=== PATIENT | male | born 1950 | race Caucasian/White ===

== ENCOUNTER 2016-08-03 06:27 | Emergency (ER) | payer OTHER, MEDICARE ==
[~2016-08-03] VITALS: Ht 177.8 cm; Wt 89.4 kg
[~2016-08-03 06:27] MED LIST: LEVO137T2 PO; OMEG10005 PO; SIMV40TA3 PO
[2016-08-03 06:33] VITALS: BP 133/76
--- NOTE | 2016-08-03 06:35 | PHYS DOC ---
Past Medical History Past Medical History: Cancer, High Cholesterol, Hypothyroid Additional Past Medical Histor: colon cancer with surg,chemo & radiation. Past Surgical History: Cancer Surgery, Cholecystectomy, Tonsillectomy Additional Past Surgical Histo: rt knee x 4, acl,lab audra,colon resection, rotator cuff bilat shoulder, Alcohol Use: None Drug Use: None Adult General Chief Complaint Chief Complaint: EYE PROBLEMS HPI HPI Patient is a 66 year old male who presents with bilateral eye pain. He states he woke up this morning and his left eye felt slightly swollen and he felt like something in it. He also states that the light initially bothered his eyes. He denies any extraocular movements that are painful, denies any fevers chills nausea or vomiting, diplopia. He states recently he has had cold-like symptoms. Review of Systems Review of Systems Constitutional: Denies fever or chills [] Eyes: Denies change in visual acuity, redness, positive for bilateral eye is comfort. HENT: Denies nasal congestion or sore throat [] Respiratory: Denies cough or shortness of breath [] Cardiovascular: No additional information not addressed in HPI [] GI: Denies abdominal pain, nausea, vomiting, bloody stools or diarrhea [] : Denies dysuria or hematuria [] Musculoskeletal: Denies back pain or joint pain [] Integument: Denies rash or skin lesions [] Neurologic: Denies headache, focal weakness or sensory changes [] Endocrine: Denies polyuria or polydipsia [] Current Medications Current Medications Current Medications Medications (Trade) Dose Ordered Sig/Kati Start Time Stop Time Status Last Admin Dose Admin Diphtheria/ Tetanus/Acell Pertussis (Boostrix) 0.5 ml ONCE ONCE 08/03/16 08:15 08/03/16 08:16 DC Erythromycin (Romycin) 0.25 inch 1X ONCE 08/03/16 07:45 08/03/16 07:46 DC 08/03/16 07:47 0.25 INCH Fluorescein Sodium (Ful-Chiquis) 2 strip 1X ONCE 08/03/16 06:45 08/03/16 06:46 DC 08/03/16 06:48 2 STRIP Tetracaine HCl (Tetracaine) 1 drop 1X ONCE 08/03/16 06:45 08/03/16 06:46 DC 08/03/16 06:48 1 DROP Allergies Allergies Allergies Coded Allergies Type Severity Reaction Last Updated Verified No Known Drug Allergies 08/15/13 No Physical Exam Physical Exam Constitutional: Well developed, well nourished, no acute distress, non-toxic appearance. [] HENT: Normocephalic, atraumatic, bilateral external ears normal, oropharynx moist, no oral exudates, nose normal. [] Eyes: PERRLA, EOMI, conjunctiva with minimal redness in the lateral conjunctiva , no discharge, split lamp exam did not show any obvious cell or flare, mild discomfort in the left eye, for seeing shows a 1 x 2 mm uptake in the 6 o'clock position near the pupil on the left eye no uptake on the right eye. Ocular pressures on the left 20, 18, 16; on the right 18, 16, 16. Visual acuities on the left 20/70, right 20/40, bilaterally 20/30 Neck: Normal range of motion, no tenderness, supple, no stridor. [] Neurologic: Alert and oriented X 3, normal motor function, normal sensory function, no focal deficits noted. [] Psychologic: Affect normal, judgement normal, mood normal. [] Current Patient Data Vital Signs Vital Signs Date Time Temp Pulse Resp B/P Pulse Ox O2 Delivery O2 Flow Rate FiO2 08/03/16 06:33 98.2 99 20 94 Room Air 98.2 EKG EKG [] Radiology/Procedures Radiology/Procedures [] Impressions: Corneal abrasion Course & Med Decision Making Course & Med Decision Making Pertinent Labs and Imaging studies reviewed. (See chart for details) I spoke with Dr. Garcia with ophthalmic who does not believe this is iritis, he thinks this is probably secondary to his corneal abrasion. He recommends follow- up with Dr. Sanford or himself within 1-2 days. Patient is being discharged with erythromycin ointment and was applied in the ER. I informed the patient to follow-up with Dr. Sanford today. He's use myosin ophthalmology ointment as instructed which is half inch per eye every 6 hours. Return ER for worsening pain, decreased vision, headaches, fevers or other concerns. His tetanus was updated since he is unsure when his last tetanus shot was. Dragon Disclaimer Dragon Disclaimer This electronic medical record was generated, in whole or in part, using a voice recognition dictation system. Departure Departure Impression: Primary Impression: Corneal abrasion Disposition: HOME, SELF-CARE Condition: STABLE Referrals: WILLY DOMINGUEZ Jr, MD (PCP) Patient Instructions: Eye - Corneal Abrasion Additional Instructions: You have an abrasion on the cornea and you need to take urethritis and ointment 1 half-inch every 4-6 hours for the next several days. Please follow-up with Dr. Sanford. Please call his office and schedule appointment for today or tomorrow. Return ER for worsening pain, fevers or other concerns. Scripts Hydrocodone/Apap 5-325 ([place] 5-325 Tablet)1 Each Tablet1-2 Tab PO Q4-6HRS PRN PAIN #20 TAB Prov:IVONNE COSBY MD 08/03/16 IVONNE COSBY MD Aug 03, 2016 06:35
[2016-08-03] MEDS ORDERED: TETRACAINE 0.5% OPHTH SOLUTION 4ML BOTTLE. OU ONE (06:45)
[2016-08-03] MEDS ORDERED: FLUORESCEIN OPHTH TEST STRIP. OU ONE (06:45)
[2016-08-03] MEDS ORDERED: ERYTHROMYCIN 0.5% OPHTH OINTMENT 1GM TUBE. OU ONE (07:45)
[2016-08-03] MEDS ORDERED: HYDR-971 PO (08:02)
[2016-08-03] MEDS ORDERED: DIPHTH,PERTUSS(ACELL),TET TOX 0.5 ML DISP.SYRIN. VAX IM ONE (08:15)
== END 2016-08-03 08:20 | disposition home or self-care (01) ==
LOC: ER 06:27
DX: S05.02XA Injury of conjunctiva and corneal abrasion without foreign body, left eye, initial encounter (principal); S05.01XA Injury of conjunctiva and corneal abrasion without foreign body, right eye, initial encounter; E03.9 Hypothyroidism, unspecified; E78.00 Pure hypercholesterolemia, unspecified; Z85.038 Personal history of other malignant neoplasm of large intestine; Z79.899 Other long term (current) drug therapy; Z90.49 Acquired absence of other specified parts of digestive tract; X58.XXXA Exposure to other specified factors, initial encounter; Y93.89 Activity, other specified; Y92.89 Other specified places as the place of occurrence of the external cause; Y99.8 Other external cause status
CPT/HCPCS: 90471; 90715; 99283-25

== ENCOUNTER 2016-08-06 11:34 | Emergency (ER) | payer OTHER, MEDICARE ==
[~2016-08-06] VITALS: Ht 175.3 cm; Wt 88.5 kg
[~2016-08-06 11:34] MED LIST changes: +HYDR-971 PO
--- NOTE | 2016-08-06 12:30 | PHYS DOC ---
Past Medical History Past Medical History: Cancer, High Cholesterol, Hypothyroid Additional Past Medical Histor: colon cancer with surg,chemo & radiation. Past Surgical History: Cancer Surgery, Cholecystectomy, Tonsillectomy Additional Past Surgical Histo: rt knee x 4, acl,lab audra,colon resection, rotator cuff bilat shoulder, Alcohol Use: None Drug Use: None Adult General Chief Complaint Chief Complaint: LOWER BACK PAIN OR INJURY [facility] HPI This is a 66 yo male presenting with an acute episode of low back pain in the L4 /L5. He states he attempted to stand suddenly from his chair and felt immediate pain in his L4-L5 region with electric-type sensation did radiate somewhat into his buttock. He denies any acute trauma to the area. He states that difficulty ambulating with his pain. 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 Paris wanted him to present to the ER for emergent MRI evaluation. He denies any fever/chills. He denies any significant surgical history. He does have history of colon cancer that required chemotherapy. Review of Systems Review of Systems Constitutional: Denies fever or chills [] Eyes: Denies change in visual acuity, redness, or eye pain [] HENT: Denies nasal congestion or sore throat [] Respiratory: Denies cough or shortness of breath [] Cardiovascular: No additional information not addressed in HPI [] GI: Denies abdominal pain, nausea, vomiting, bloody stools or diarrhea [] : Denies dysuria or hematuria [] Musculoskeletal: Has back pain, denies joint pain [] Integument: Denies rash or skin lesions [] Neurologic: Denies headache, focal weakness or sensory changes [] Endocrine: Denies polyuria or polydipsia [] Current Medications Current Medications Current Medications Medications (Trade) Dose Ordered Sig/Kati Start Time Stop Time Status Last Admin Dose Admin Fentanyl Citrate (Fentanyl 2ml Vial) 50 mcg 1X ONCE 08/06/16 13:00 08/06/16 13:01 DC 08/06/16 12:39 50 MCG Gadobutrol (Gadavist) 9 mmol 1X ONCE 08/06/16 14:15 08/06/16 14:16 DC 08/06/16 13:55 9 MMOL Allergies Allergies Allergies Coded Allergies Type Severity Reaction Last Updated Verified No Known Drug Allergies 08/15/13 No Physical Exam Physical Exam Constitutional: Well developed, well nourished, no acute distress, non-toxic appearance. [] HENT: Normocephalic, atraumatic, bilateral external ears normal, oropharynx moist, no oral exudates, nose normal. [] Eyes: PERRLA, EOMI, conjunctiva normal, no discharge. [] Neck: Normal range of motion, no tenderness, supple, no stridor. [] Cardiovascular:Heart rate regular rhythm, no murmur [] Lungs & Thorax: Bilateral breath sounds clear to auscultation [] Abdomen: Bowel sounds normal, soft, no tenderness, no masses, no pulsatile masses. [] Skin: Warm, dry, no erythema, no rash. [] Back: Significant tenderness to the L4/L5 region with no obvious deformity, swelling, or erythema, no CVA tenderness. [] Extremities: No tenderness, no cyanosis, no clubbing, ROM intact, no edema. [] Neurologic: Alert and oriented X 3, normal motor function, normal sensory function, no focal deficits noted. [] Psychologic: Affect normal, judgement normal, mood normal. [] Current Patient Data Vital Signs Vital Signs Date Time Temp Pulse Resp B/P Pulse Ox O2 Delivery O2 Flow Rate FiO2 08/06/16 12:45 80 114/69 94 Room Air 08/06/16 12:39 16 08/06/16 11:45 98.9 98.9 Lab Values Laboratory Tests Test 08/06/16 12:20 White Blood Count 7.0x10^3/uL (4.0-11.0) Red Blood Count 5.34x10^6/uL (4.30-5.70) Hemoglobin 17.1g/dL (13.0-17.5) Hematocrit 49.4% (39.0-53.0) Mean Corpuscular Volume 93fL (79-100) Mean Corpuscular Hemoglobin 32pg (25-35) Mean Corpuscular Hemoglobin Concent 35g/dL (31-37) Red Cell Distribution Width 13.8% (11.5-14.5) Platelet Count 155x10^3/uL (140-400) Neutrophils (%) (Auto) 69% (31-73) Lymphocytes (%) (Auto) 18% (24-48) L Monocytes (%) (Auto) 10% (0-9) H Eosinophils (%) (Auto) 3% (0-3) Basophils (%) (Auto) 1% (0-3) Neutrophils # (Auto) 4.8x10^3uL (1.8-7.7) Lymphocytes # (Auto) 1.3x10^3/uL (1.0-4.8) Monocytes # (Auto) 0.7x10^3/uL (0.0-1.1) Eosinophils # (Auto) 0.2x10^3/uL (0.0-0.7) Basophils # (Auto) 0.1x10^3/uL (0.0-0.2) Sodium Level 143mmol/L (136-145) Potassium Level 3.8mmol/L (3.5-5.1) Chloride Level 106mmol/L (98-107) Carbon Dioxide Level 26mmol/L (21-32) Anion Gap 11 (6-14) Blood Urea Nitrogen 22mg/dL (8-26) Creatinine 0.9mg/dL (0.7-1.3) Estimated GFR (Cockcroft-Gault) 84.7 Glucose Level 239mg/dL (70-99) H Calcium Level 8.6mg/dL (8.5-10.1) Laboratory Tests 08/06/16 12:20 Laboratory Tests 08/06/16 12:20 EKG EKG [] Radiology/Procedures Radiology/Procedures MRI of the lumbar spine without and with contrast: There is 11 millimeters of anterolisthesis at L4-L5. There is otherwise no malalignment. There is edema in the endplates at L3-L4 and L4-L5, probably sclerosis at L3-L4 as well. There is no worrisome marrow lesion. There is disc desiccation diffusely but greatest at L3-L4 and L4-L5. Narrowing of disc height is greatest at L3-L4. Conus medullaris is normal in signal intensity and in position. There is enhancement involving the nerve roots beginning at the level of L4, without significant peripheral displacement of nerve roots. Nerve roots do appear clumped. 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 Subcutaneous edema is noted. The numbering system assumes 5 lumbar type vertebral bodies. Findings by individual level are as follows: L1-L2: There is a mild disc bulge and left paracentral shallow protrusion. There is slight left lateral recess narrowing. L2-L3: Mild disc bulge and minimal facet hypertrophy are noted without canal or foraminal compromise. L3-L4: There is a disc osteophyte complex. There is facet hypertrophy bilaterally and greater on the left. Midline AP diameter of the thecal sac is narrowed to 11 millimeters. There is lateral recess narrowing, high-grade on the left. There is mild to moderate left and moderate to severe right foraminal narrowing. L4-L5: There is unroofing of the disc in addition to the anterolisthesis. There is marked facet and ligamentum flavum hypertrophy. There is severe canal stenosis. Thecal sac is narrowed to 6 millimeters. There is lateral recess narrowing. There is mild to moderate bilateral foraminal narrowing. L5-S1: There is no canal or foraminal compromise. L5 vertebral body may be partially sacralized on the left. Course & Med Decision Making Course & Med Decision Making Pertinent Labs and Imaging studies reviewed. (See chart for details) This 66 yo male with significant low back pain will have an emergent MRI ordered to rule out any acute cause to his symptoms. Routine laboratory workup will be obtained. He will be given pain control as well. I will touch base with Dr. Paris regarding his findings. His laboratory workup is unremarkable. Arrived his lumbar spine revealed the following findings: There is 11 millimeters of anterolisthesis at L4-L5. There is otherwise no malalignment. There is edema in the endplates at L3-L4 and L4-L5, probably sclerosis at L3-L4 as well. There is no worrisome marrow lesion. There is disc desiccation diffusely but greatest at L3-L4 and L4-L5. Narrowing of disc height is greatest at L3-L4. Conus medullaris is normal in signal intensity and in position. There is enhancement involving the nerve roots beginning at the level of L4, without significant peripheral displacement of nerve roots. Nerve roots do appear clumped. 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 Subcutaneous edema is noted. The numbering system assumes 5 lumbar type vertebral bodies. Findings by individual level are as follows: L1-L2: There is a mild disc bulge and left paracentral shallow protrusion. There is slight left lateral recess narrowing. L2-L3: Mild disc bulge and minimal facet hypertrophy are noted without canal or foraminal compromise. L3-L4: There is a disc osteophyte complex. There is facet hypertrophy bilaterally and greater on the left. Midline AP diameter of the thecal sac is narrowed to 11 millimeters. There is lateral recess narrowing, high-grade on the left. There is mild to moderate left and moderate to severe right foraminal narrowing. L4-L5: There is unroofing of the disc in addition to the anterolisthesis. There is marked facet and ligamentum flavum hypertrophy. There is severe canal stenosis. Thecal sac is narrowed to 6 millimeters. There is lateral recess narrowing. There is mild to moderate bilateral foraminal narrowing. L5-S1: There is no canal or foraminal compromise. L5 vertebral body may be partially sacralized on the left. I discussed these findings with the nurse who works with the neurosurgeon, Dr. Paris, agreed to see the patient in the office tomorrow afternoon. I will be prescribing some Krypton tablets for the patient until that time. He was discharged without incident feeling much improved. Dragon Disclaimer Dragon Disclaimer This electronic medical record was generated, in whole or in part, using a voice recognition dictation system. Departure Departure Impression: Primary Impression: Lumbar strain Additional Impression: Disc degeneration, lumbar Disposition: 01 HOME, SELF-CARE Admitting Physician: Other Condition: STABLE Referrals: WILLY DOMINGUEZ Jr, MD (PCP) Patient Instructions: Degenerative Disk Disease Additional Instructions: Please follow up with Dr. Paris in the afternoon tomorrow. Avoid any strenous activities and take your pain medication as prescribed. Return to the ER if you develop any worsening of your symptoms. Scripts Hydrocodone/Apap 5-325 (K[place] 5-325 Tablet)1 Each Tablet1 Tab PO PRN Q6HRS PRN PAIN #8 TAB Prov:IAN ALLEN DO 08/06/16 Problem Qualifiers IAN ALLEN DO Aug 06, 2016 12:30
[2016-08-06 12:35] LABS: BASO # 0.1 x10^3/uL (0.0-0.2); BASO % 1 % (0-3); EOS % 3 % (0-3); HEMATOCRIT 49.4 % (39.0-53.0); HEMOGLOBIN 17.1 g/dL (13.0-17.5); LYMPH # 1.3 x10^3/uL (1.0-4.8); LYMPH % 18 % (24-48); MEAN CORPUSCULAR HEMOGLOBIN 32 pg (25-35); MEAN CORPUSCULAR HGB CONC 35 g/dL (31-37); MEAN CORPUSCULAR VOLUME 93 fL (79-100); MONO % 10 % (0-9); NEUT % 69 % (31-73); PLATELET COUNT 155 x10^3/uL (140-400); RED BLOOD COUNT 5.34 x10^6/uL (4.30-5.70); RED CELL DISTRIBUTION WIDTH 13.8 % (11.5-14.5)
[2016-08-06 12:45] VITALS: BP 114/69
[2016-08-06 12:48] LABS: CALCIUM 8.6 mg/dL (8.5-10.1); CREATININE 0.9 mg/dL (0.7-1.3); GFR 84.7; POTASSIUM 3.8 mmol/L (3.5-5.1)
[2016-08-06] MEDS ORDERED: FENTANYL PF 100 MCG/2 ML VIAL. IV ONE (13:00)
[2016-08-06] MEDS ORDERED: GADOBUTROL 10 MMOL/10 ML VIAL IV ONE (14:15)
--- NOTE | 2016-08-06 14:21 | RAD ---
PROCEDURE MRI lumbar spine with and without contrast. HISTORY Chronic low back pain and worsening lower extremity radiculopathy bilaterally. No prior surgery. TECHNIQUE Sagittal T1, sagittal T2, sagittal STIR, axial T1, and axial T2 sequences are provided. Patient received 9 milliliters of intravenous Gadavist and post-contrast axial and sagittal imaging was then performed. COMPARISON None. FINDINGS There is 11 millimeters of anterolisthesis at L4-L5. There is otherwise no malalignment. There is edema in the endplates at L3-L4 and L4-L5, probably sclerosis at L3-L4 as well. There is no worrisome marrow lesion. There is disc desiccation diffusely but greatest at L3-L4 and L4-L5. Narrowing of disc height is greatest at L3-L4. Conus medullaris is normal in signal intensity and in position. There is enhancement involving the nerve roots beginning at the level of L4, without significant peripheral displacement of nerve roots. Nerve roots do appear clumped. 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 Subcutaneous edema is noted. The numbering system assumes 5 lumbar type vertebral bodies. Findings by individual level are as follows: L1-L2: There is a mild disc bulge and left paracentral shallow protrusion. There is slight left lateral recess narrowing. L2-L3: Mild disc bulge and minimal facet hypertrophy are noted without canal or foraminal compromise. L3-L4: There is a disc osteophyte complex. There is facet hypertrophy bilaterally and greater on the left. Midline AP diameter of the thecal sac is narrowed to 11 millimeters. There is lateral recess narrowing, high-grade on the left. There is mild to moderate left and moderate to severe right foraminal narrowing. L4-L5: There is unroofing of the disc in addition to the anterolisthesis. There is marked facet and ligamentum flavum hypertrophy. There is severe canal stenosis. Thecal sac is narrowed to 6 millimeters. There is lateral recess narrowing. There is mild to moderate bilateral foraminal narrowing. L5-S1: There is no canal or foraminal compromise. L5 vertebral body may be partially sacralized on the left. IMPRESSION - Degenerative disc disease as well as facet and ligamentum flavum hypertrophy are noted throughout the lumbar spine. Canal stenosis is greatest at L4-L5. Foraminal narrowing is greatest at L3-L4. 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 Electronically signed by: Óscar Callaway MD (Aug 06, 2016 14:20:02)
[2016-08-06] MEDS ORDERED: HYDR-971 PO (15:21)
== END 2016-08-06 16:15 | disposition home or self-care (01) ==
LOC: ER 11:34
DX: S39.012A Strain of muscle, fascia and tendon of lower back, initial encounter (principal); M51.36 Other intervertebral disc degeneration, lumbar region; E78.00 Pure hypercholesterolemia, unspecified; E03.9 Hypothyroidism, unspecified; Z85.038 Personal history of other malignant neoplasm of large intestine; Z90.49 Acquired absence of other specified parts of digestive tract; Z51.11 Encounter for antineoplastic chemotherapy; X58.XXXA Exposure to other specified factors, initial encounter; Y93.89 Activity, other specified; Y92.89 Other specified places as the place of occurrence of the external cause; Y99.8 Other external cause status
CPT/HCPCS: 36415; 72158; 80048; 85027; 96374; 96375; 99285; A9585; J3010

== ENCOUNTER → 2016-08-14 | Outpatient (CLI) | payer MEDICARE, OTHER ==
[2016-08-06 12:45] VITALS: BP 114/69
[~2016-08-14] MED LIST changes: +IOHEXOL 180 MG/ML 10 ML VIAL. ONE; +methylPREDNISolone ACETATE 40 MG/ML VIAL. ONE; +methylPREDNISolone ACETATE 80 MG/ML VIAL. ONE
--- NOTE | 2016-08-15 00:01 | PAIN ---
DATE OF SERVICE: 08/14/2016 INITIAL CONSULTATION CHIEF COMPLAINT: Low back pain. HISTORY OF PRESENT ILLNESS: This is a 66-year-old male who presents with history of pain in the low back for about 2 weeks with some ongoing pain over the years, but nothing significant for the last 2 weeks or so. 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 The patient reports it is a sharp, stabbing, shooting in the low back itself, occasionally in the lower extremities, but mostly in the back itself, occasionally into the bilateral hips and lower extremities and thighs, somewhat worse on the right than the left, but the back is much worse than either. The patient reports he has done some physical therapy as well as exercise over the past 2 weeks, which has not been decreasing the pain significantly. The patient has tried hydrocodone, Valium, morphine and Aleve all which decreased the pain, but only by 20-25% improvement. The patient reports no loss of motor function, but significant pain with walking and standing, better with lying down, but does not awaken him from sleep at night, sometimes affects his bowel and bladder control, but no incontinence. It does not affect his ability to walk, but does affect his ability to walk fairly significantly. He is not using any assistive devices such as canes or walkers to ambulate, however. The patient reports his disability rating from 0-10, 10 being the worst and 3 with family and home responsibilities and occupation and sexual behavior, 6 with recreation, 2 with social activity, 1 with self care and 0 with life support activities. The patient did have MRI scan of the lumbar spine showing degenerative disk disease as well as facet and ligamentum flavum hypertrophy noted throughout the lumbar spine canal stenosis greatest at L4-L5 with foraminal narrowing at L3-L4 enhancement with nerve roots beginning at level L4 as well as disk bulge at L2-L3. The patient's L3-L4 level shows mild to moderate left and moderate to severe right foraminal narrowing. L4-L5 shows unroofing of the disk condition to an anterolisthesis with marked facet ligamentum flavum hypertrophy and severe canal stenosis at this level, thecal sac narrowing to 6 mm with lateral recess narrowing. PAST MEDICAL HISTORY: Significant for arthritis, previous colon cancer 1993, status post radiation and chemotherapy and possibly enlarged prostate. PREVIOUS SURGERY: Include laparoscopic cholecystectomy, colon resection, appendectomy, bilateral rotator cuff repairs, ACL repair of the right knee, three arthroscopies of the right knee as well and previous thyroidectomy. CURRENT MEDICATIONS: Include omega 3 oils, simvastatin, Synthroid, and hydrocodone. ALLERGIES: The patient has no known drug allergies. FAMILY HISTORY: Significant for cardiac disease, blood pressure, type 2 diabetes in both parents who are both . SOCIAL HISTORY: The patient drinks alcohol only very rarely less than twice a year. Does not smoke. 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 REVIEW OF SYSTEMS: The patient's review of systems is positive for those items mentioned in history of present illness. All systems reviewed and otherwise negative. It is complete, full and well documented on the patient's chart. PHYSICAL EXAMINATION: VITAL SIGNS: The patient's blood pressure is 129/90, pulse 98, respirations 16, temperature 98.4 degrees Fahrenheit, height is 5 feet 9 inches, weight is 203 pounds. GENERAL: The patient is awake, alert, oriented, appropriate, very pleasant demeanor. HEENT: Head shows normocephalic, atraumatic. Extraocular movements are intact and symmetrical. Oral cavity shows mucous membranes moist and pink. Dentition is intact. NECK: Shows anterior throat supple without palpable lymphadenopathy noted. Swallow reflex is symmetrical. CHEST: Shows normal on inspection. Breath sounds clear to auscultation bilaterally. HEART: Shows S1 and S2 clear. ABDOMEN: Soft, nontender, nondistended. No palpable organomegaly. No rebound or guarding demonstrated. BACK: Shows spine grossly midline, normal-appearing cervical lordotic curvature, thoracic kyphotic curvature, and lumbar lordotic curvature. No previous bruises, lesions, rashes or scars are noted. Lumbar paraspinous musculature shows symmetrical with inspection with palpation shows some moderate tenderness in the lower and middle distribution of paraspinous muscles bilaterally, but without significant atrophy, hypertrophy, no trigger points, no tenderness over the spinous processes. No tenderness over the sacrum or sacroiliac regions. The patient shows good rotation and motion of the lumbar spine, both laterally as well as extension and flexion without significant pain reported in any of range of motion. LOWER EXTREMITIES: Showed deep tendon reflexes 2+ in the patellar, 1+ tendo calcaneus tendons. Motor exam is strong with 5/5 dorsiflexion, extension, quadriceps and hamstring flexion and equal. Straight leg raise noted to be negative for any reproduction of radicular symptoms bilaterally. Peripheral pulses are 1+ posterior tibial and dorsalis pedis pulses. No peripheral edema is noted. No clubbing, no cyanosis. Lower extremities are warm and dry to touch, equal in color and appearance. The patient is able to stand, stand on his toes without significant difficulty or balance loss, walks with a normal appearing gait for short distance in the office today, is not using any assistive devices to ambulate. IMPRESSION: 1. A 66-year-old male with increased pain in bilateral lower extremities and low back in a radicular fashion for the past 2 weeks or so after an injury at work. 2. MRI scan of lumbar spine as noted. 3. History of colon cancer. 4. Arthritis. PLAN: Options were discussed with the patient including conservative medical management, physical therapy, interventional techniques and would like to pursue interventional techniques. We discussed lumbar epidural steroid injection using description as well as anatomical models to describe the procedure. Risks were then discussed including, but not limited to bleeding, infection, possibility of epidural hematoma, subsequent neurologic compromise, dural punctures, headaches, spinal cord and/or nerve damage, side effects of steroid medication and poor results regarding pain control. The patient understands and wishes to proceed. The patient will return to clinic in approximately 2 weeks for followup, was counseled on return appointment, activity level and side effects to be aware of. DIAGNOSES: Lumbar radiculopathy with lumbar degenerative disk disease and lumbar spinal stenosis. PROCEDURE: Lumbar epidural steroid injection using C-arm fluoroscopic guidance translaminar approach at the L4-L5 level with sterile prep and drape and local anesthesia, medications at this time 20 mg Depo-Medrol plus 10 mL of preservative-free normal saline and 2 mL of Isovue for contrast. Condition at discharge is stable. The patient tolerated procedure well, had no complications. EMILIE SANCHES MD DR: VANNESA/alejandrina JOB#: [id number] / [id number]
== END | disposition home or self-care (01) ==
LOC: PNCL 07:09
PROVIDERS: ATTEND Anesthesiology
DX: M51.16 Intervertebral disc disorders with radiculopathy, lumbar region (principal); M48.06 Spinal stenosis, lumbar region; M19.90 Unspecified osteoarthritis, unspecified site; Z85.038 Personal history of other malignant neoplasm of large intestine; Z72.89 Other problems related to lifestyle; Z83.3 Family history of diabetes mellitus
CPT/HCPCS: 62323; J1030; J1040

== ENCOUNTER → 2016-09-01 | Outpatient (CLI) | payer OTHER, MEDICARE ==
[2016-08-06 12:45] VITALS: BP 114/69
--- NOTE | 2016-09-01 10:28 | PAIN ---
DATE OF SERVICE: 09/01/2016 PROGRESS NOTE FOR PAIN CLINIC DIAGNOSES: Lumbar radiculopathy with lumbar degenerative disk disease and lumbar spinal stenosis. HISTORY OF PRESENT ILLNESS: The patient is a 66-year-old male who returns for followup status post lumbar epidural steroid injection x 1. The patient reports approximately 75% improvement in the low back and bilateral lower extremity pain still worse on the right than the left, but significantly improved with almost no pain in the back now. The patient reports he has been increasing his activity, but being careful with what he does. He has been working and he is on his feet most of the time without significant difficulty or pain reported. The patient reports the pain as 0 on a scale of 10 currently, but is only ____ 3 on a scale of 10 at other times with activity. The patient reports no new motor or sensory deficits, no new bowel or bladder incontinence or other complaints, very pleased with his progress thus far. PHYSICAL EXAMINATION: VITAL SIGNS: Today, the patient's blood pressure 115/75, pulse is 70, respirations 18, temperature is 98.0 degrees Fahrenheit, height is 5 feet 9 inches, weight is 202 pounds. GENERAL: The patient is awake, alert, oriented, appropriate, very pleasant demeanor. HEENT: Head shows normocephalic, atraumatic. Extraocular movements are intact and symmetrical. Oral cavity shows mucous membranes moist and pink. Dentition is intact. NECK: Shows anterior throat supple without palpable lymphadenopathy noted. Swallow reflex is symmetrical. CHEST: Shows normal on inspection. Breath sounds are clear to auscultation bilaterally. HEART: Shows S1 and S2 clear. ABDOMEN: Soft, nontender, nondistended. BACK: Shows spine grossly midline. Lumbar paraspinous muscle shows some moderate tenderness with palpation, but is symmetrical in appearance, only diffusely tender in the lower lumbar distribution bilaterally, but without radiation. The patient shows good rotational motion of the lumbar spine, both laterally as well as extension and flexion without difficulty. EXTREMITIES: Lower extremities show deep tendon reflexes at 2+ in the patellar, 1+ tendo-calcaneus tendons are equal. Motor exam is strong with 5/5 dorsiflexion, extension, quadriceps and hamstring flexion and symmetrical. Options were discussed with the patient. The patient's old chart was reviewed and his current medication regimen updated. Current review of systems is updated today as well. We will proceed with a second lumbar epidural steroid injection today with fluoroscopic guidance. Risks were again discussed including, but not limited to bleeding, infection, possibility of epidural hematoma, subsequent neurologic compromise, dural puncture, headaches, spinal cord and/or nerve damage, side effects of steroid medication and poor results regarding pain control. The patient understands and wishes to proceed. The patient will return to clinic in approximately 2 weeks for followup. He was counseled on return appointment, activity level and side effects to be aware of. DIAGNOSES: Lumbar radiculopathy with lumbar degenerative disk disease, lumbar spinal stenosis. PROCEDURE: Lumbar epidural steroid injection in translaminar approach at L4-L5 level using C-arm fluoroscopic guidance under sterile prep and drape using local anesthetic. MEDICATIONS INJECTED: 120 mg Depo-Medrol plus 10 mL of preservative-free normal saline, 2 mL of Isovue for contrast. CONDITION AT DISCHARGE: Stable. The patient tolerated the procedure well, had no complications. EMILIE SANCHES MD DR: VANNESA/alejandrina JOB#: [id number] / [id number]
== END | disposition home or self-care (01) ==
LOC: PNCL 07:22
PROVIDERS: ATTEND Anesthesiology
DX: M51.16 Intervertebral disc disorders with radiculopathy, lumbar region (principal); M48.06 Spinal stenosis, lumbar region
CPT/HCPCS: 62323; J1030; J1040

== ENCOUNTER 2016-09-14 06:29 | Day surgery (SDC) | payer OTHER, MEDICARE ==
[~2016-09-14] VITALS: Ht 177.8 cm; Wt 88.5 kg
[~2016-09-14 06:29] MED LIST changes: -IOHEXOL 180 MG/ML 10 ML VIAL. ONE; -methylPREDNISolone ACETATE 40 MG/ML VIAL. ONE; -methylPREDNISolone ACETATE 80 MG/ML VIAL. ONE
[2016-09-14] MEDS ORDERED: SCOPOLAMINE 1.5MG PATCH. TD PRN (07:00)
[2016-09-14] MEDS ORDERED: IV RINGERS,LACTATED 1000ML 1,000 ML IV SCH ×2 (07:00→07:30)
[2016-09-14] MEDS ORDERED: FENTANYL PF 100 MCG/2 ML VIAL. IV PRN (07:00)
[2016-09-14] MEDS ORDERED: ONDANSETRON PF 4 MG/2 ML VIAL. IV PRN (07:00)
[2016-09-14] MEDS ORDERED: PROCHLORPERAZINE 10 MG/2 ML VIAL. IV PRN (07:00)
[2016-09-14] MEDS ORDERED: LIDOCAINE 1% 1 ML SYRINGE. ID PRN (07:00)
[2016-09-14 07:11] LABS: BASO # 0.1 x10^3/uL (0.0-0.2); BASO % 1 % (0-3); EOS % 2 % (0-3); HEMATOCRIT 50.8 % (39.0-53.0); HEMOGLOBIN 16.9 g/dL (13.0-17.5); LYMPH # 1.5 x10^3/uL (1.0-4.8); LYMPH % 19 % (24-48); MEAN CORPUSCULAR HEMOGLOBIN 32 pg (25-35); MEAN CORPUSCULAR HGB CONC 33 g/dL (31-37); MEAN CORPUSCULAR VOLUME 96 fL (79-100); MONO % 9 % (0-9); NEUT % 68 % (31-73); PLATELET COUNT 142 x10^3/uL (140-400); RED BLOOD COUNT 5.29 x10^6/uL (4.30-5.70); RED CELL DISTRIBUTION WIDTH 14.5 % (11.5-14.5)
[2016-09-14 07:23] LABS: CALCIUM 8.2 mg/dL (8.5-10.1); CREATININE 0.9 mg/dL (0.7-1.3); GFR 84.7; POTASSIUM 4.1 mmol/L (3.5-5.1)
[2016-09-14] MEDS ORDERED: BUPIVAC MPF-EPI 0.5%-1:200000 30 ML VIAL. ONE (07:23)
[2016-09-14] MEDS ORDERED: ROCURONIUM 50 MG/5 ML VIAL. ONE (07:25)
[2016-09-14] MEDS ORDERED: PROPOFOL 20 ML IV ONE ×2 (07:25→07:26)
[2016-09-14] MEDS ORDERED: ONDANSETRON PF 4 MG/2 ML VIAL. ONE (07:25)
[2016-09-14] MEDS ORDERED: LIDOCAINE 2% 100 MG/5 ML SYRINGE. ONE (07:25)
[2016-09-14] MEDS ORDERED: DEXAMETHASONE SOD PHOS 20 MG/5 ML VIAL. ONE (07:25)
[2016-09-14] MEDS ORDERED: FENTANYL PF 100 MCG/2 ML VIAL. ONE (07:25)
[2016-09-14 07:28] LABS: ALBUMIN 3.7 g/dL (3.4-5.0); ALBUMIN/GLOBULIN RATIO 1.3 (1.0-1.7); TOTAL BILIRUBIN 0.7 mg/dL (0.2-1.0); TOTAL PROTEIN 6.6 g/dL (6.4-8.2)
[2016-09-14] MEDS ORDERED: CEFAZOLIN 2GM PREMIX 50 ML IV ONE (08:00)
[2016-09-14] MEDS ORDERED: ACETAMINOPHEN INTRAVENOUS 100 ML IV ONE (08:18)
[2016-09-14] MEDS ORDERED: MIDAZOLAM HCL/PF 2 MG/2 ML VIAL. ONE (08:35)
[2016-09-14] MEDS ORDERED: PHENYLEPHRINE in 0.9% NACL PF 1 MG/10 ML DISP.SYRIN. IV ONE (08:41)
[2016-09-14] MEDS ORDERED: GLYCOPYRROLATE 1 MG/5 ML VIAL. ONE (09:18)
[2016-09-14] MEDS ORDERED: NEOSTIGMINE METHYLSULFATE 5 MG/5 ML SYRINGE. ONE (09:18)
[2016-09-14] MEDS: HYDROMORPHONE 2 MG/ML VIAL. IV PRN ×4 (09:31→10:41)
[2016-09-14] MEDS: FENTANYL PF 100 MCG/2 ML VIAL. IV PRN ×3 (09:59→11:21)
[2016-09-14] MEDS: MORPHINE SULFATE 2 MG/ML DISP.SYRIN. IV PRN ×2 (10:18→10:31)
--- NOTE | 2016-09-14 11:35 | PDOC ---
BRIEF OPERATIVE NOTE Date: Sep 14, 2016 Pre-Op Diagnosis incarcerated ventral incisional hernia Post-Op Diagnosis same Procedure Performed repair with mesh Surgeon Aj Anesthesia Type: General Blood Loss 10cc IV Fluid 1200cc Specimens Obtained none Findings multi-loculated hernia sack with fatty contents Complications none Additional Remarks # [id number] RENE SIM MD Sep 14, 2016 11:35
--- NOTE | 2016-09-14 11:36 | DISCH ---
DISCHARGE INSTRUCTIONS Condition on Discharge Condition on Discharge: Stable Activity After Discharge Activity Instructions for Disc: Activity as tolerated Lifting Instructions after Dis: No heavy lifting Driving Instructions after Dis: Do not drive (4-5 days) Diet after Discharge Diet after Discharge: Regular Wound Incision Care Other wound/incision instructi: october Follow-Up Follow up with: Aj next week RENE SIM MD Sep 14, 2016 11:36
[2016-09-14] MEDS ORDERED: OXYCODONE/APAP 5/325 TABLET. PO ONE (11:45)
[2016-09-14] MEDS ORDERED: OXYC-244 PO (11:46)
[2016-09-14 12:05] VITALS: BP 148/78
--- NOTE | 2016-09-14 16:31 | OP ---
DATE OF SURGERY: 09/14/2016 PREOPERATIVE DIAGNOSIS: Incarcerated ventral incisional hernia. POSTOPERATIVE DIAGNOSIS: Incarcerated ventral incisional hernia. PROCEDURE: Repair with mesh. SURGEON: Braden Sim MD ANESTHESIA: General endotracheal. ESTIMATED BLOOD LOSS: 10 mL. IV FLUIDS: 1200. INDICATIONS: The patient is a 66-year-old with previous colon surgery through a midline incision. The upper half of the incision contains at least one hernia. He is brought for repair. OPERATIVE FINDINGS: A multiloculated hernia sac with fatty contents incarcerated in it was identified. No other abnormalities were seen. DESCRIPTION OF PROCEDURE: The patient was brought to the Operating Suite, given a general endotracheal anesthetic, and the abdomen was prepped and draped in usual sterile fashion. The upper half of his incision was infiltrated with local anesthetic, incised, and dissection was carried down to the hernia sac. It was mobilized and exposed circumferentially. The sac was carefully opened, and the incarcerated contents were taken down with sharp and cautery dissection taking care to avoid injury to any abdominal contents. When a correct sponge count had been obtained, the defect was repaired with a medium oval Ventrio mesh placed intraabdominally. This was tacked at 12 o'clock and 6 o'clock with 0 PDS. An AbsorbaTack was then used to secure around the periphery taking care to avoid abdominal contents. Good hemostasis was present. When a second sponge count was correct, the attenuated abdominal wall fascia was closed over the mesh in a running fashion with 0 Vicryl. A 19-Bahamian round Brennan drain was brought through an inferolateral stab wound, secured to the skin with a silk stitch and left in the subcutaneous space for postoperative drainage. Skin was closed with a subcuticular 4-0 Monocryl. Steri-Strips and sterile dressing were applied. Abdominal binder was placed. The patient was awakened from his anesthetic and taken to the Recovery Room in satisfactory condition. BRADEN SIM MD DR: RAOUL/alejandrina JOB#: [id number] / [id number]
== END 2016-09-14 12:34 | disposition home or self-care (01) ==
LOC: SURG 06:29
PROVIDERS: ATTEND Surgery
DX: K43.0 Incisional hernia with obstruction, without gangrene (principal); M19.90 Unspecified osteoarthritis, unspecified site; E03.9 Hypothyroidism, unspecified; Z90.49 Acquired absence of other specified parts of digestive tract
CPT/HCPCS: 36415; 49561; 49568; 80053; 85027; C1769; C1781; J0131; J0690; J0780; J1100; J1170; J2250; J2270; J2370; J2405; J2704; J2710; J3010; J3490

== ENCOUNTER → 2018-02-21 | Outpatient (CLI) | payer MEDICARE ==
[~2018-02-21] MED LIST changes: +OXYC-327 PO
--- NOTE | 2018-02-21 09:20 | RAD ---
MRI Lumbar Spine without contrast History: Worsening chronic pain, gait instability, low back pain Technique: Multiplanar, multi sequential noncontrast MR imaging was performed of the lumbar spine. Contrast: None Comparison: August 06, 2016 Findings: Most inferior fully formed intervertebral disc space is again considered L5-S1. There is grade 1 anterior spondylolisthesis at L4-5 as seen previously, minimal posterior subluxation L3 relative L4 and L2 relative to L3. There is again endplate edema at L3-4 and inferiorly of L4 more likely to be reactive/degenerative in etiology. There is again more advanced degenerative disc disease L3-4 and to lesser degree at L4-5. There is narrowing of the L5-S1 intervertebral disc space on developmental basis. Conus terminates at L1-2. L1-L2: There is negligible disc osteophyte complex. Neural foramina and spinal canal are adequate. L2-L3: There is negligible disc osteophyte complex. There is mild facet degenerative change greater on the right. Spinal canal and neural foramina are adequate. L3-L4: There is disc osteophyte complex. There is mild buckling of the ligamentum flavum. There is moderate facet hypertrophic change. There is mild narrowing of the far lateral recesses bilaterally as seen previously. There is mild left and moderate to severe right neural foramina compromise as seen previously. L4-L5: There is fairly severe facet degenerative change and mild to moderate buckling of the ligamentum flavum as seen previously. There is partial uncovering of the posterior aspect of the disc due to spondylolisthesis. There is again fairly severe spinal stenosis, severe lateral recess stenosis bilaterally with impingement of the descending L5 nerve roots. There is limited preserved central subarachnoid space. There is again mild posterior neural foramina compromise bilaterally, also contact of the undersurfaces of the exiting L4 nerve roots bilaterally by partially uncovered posterior aspect of the disc. L5-S1: Spinal canal and neural foramina are adequate. There is some extraforaminal osseous narrowing about the left L5 nerve root due to sacralization. Impression: 1. Findings are similar compared with the August 2016 exam. There is again fairly severe spinal stenosis L4-5 with lateral recess stenosis and impingement of the descending L5 nerve roots, lesser degree of mild lateral recess stenosis bilaterally at L3-L4. There is again grade 1 anterior spondylolisthesis at L4-5 and minimal posterior subluxation L3 relative to L4 and L2 relative to L3. There is more advanced degenerative disc disease at L3-4, to lesser degree at L4-5. 2. There is again moderate to severe narrowing of the right L3-4 neural foramen, other minimal narrowing on the left at L3-4 and bilaterally at L4-5. Electronically signed by: Rylan Cabral MD (02/21/2018 9:16 AM) [facility]
== END | disposition home or self-care (01) ==
LOC: MRI 07:54
PROVIDERS: ATTEND Internal Medicine
DX: M48.061 Spinal stenosis, lumbar region without neurogenic claudication (principal); M43.16 Spondylolisthesis, lumbar region; M51.36 Other intervertebral disc degeneration, lumbar region; M53.2X6 Spinal instabilities, lumbar region; E78.00 Pure hypercholesterolemia, unspecified; Z83.3 Family history of diabetes mellitus; Z79.899 Other long term (current) drug therapy; M17.11 Unilateral primary osteoarthritis, right knee; Z85.038 Personal history of other malignant neoplasm of large intestine; Z90.49 Acquired absence of other specified parts of digestive tract
CPT/HCPCS: 72148

== ENCOUNTER → 2018-03-02 | Outpatient (CLI) | payer MEDICARE ==
--- NOTE | 2018-03-02 17:30 | KCIC ---
Examination: 2 views of the lumbar spine HISTORY: History of spondylolisthesis, weakness in the legs COMPARISON: MRI from 02/21/2018. Findings: Anterolisthesis of L4 on L5 measuring 1.2 cm. There is severe joint space loss identified at L3-L4 vertebral level. Moderate osteophyte formation identified at L3, L4, L5 vertebral levels. The facets are well aligned. Moderate degenerative changes identified in the facet joints. Minimal compression change of superior endplate of L4 again identified. IMPRESSION: 1. Severe degenerative changes identified at L3-L4 vertebral level. Anterolisthesis of L4 on L5. Minimal compression change of superior endplate of L4 again identified. Electronically signed by: Eric Chu MD (03/02/2018 5:27 PM) [id number]
== END | disposition home or self-care (01) ==
LOC: KCIC 11:51
PROVIDERS: ATTEND Neurological Surgery
DX: M43.16 Spondylolisthesis, lumbar region (principal); M47.896 Other spondylosis, lumbar region; M25.78 Osteophyte, vertebrae
CPT/HCPCS: 72100

== ENCOUNTER → 2018-03-21 | Outpatient (CLI) | payer MEDICARE ==
[~2018-03-21] MED LIST changes: +DOCU-109 PO; +FINA5TAB4 PO; +METF500T16 PO; +MULT-460 PO; +OXYC1TAB7 PO; +TAMS0.4C2 PO
[2018-03-21 16:10] LABS: BASO # 0.1 x10^3/uL (0.0-0.2); BASO % 1 % (0-3); EOS # 0.2 x10^3/uL (0.0-0.7); EOS % 2 % (0-3); HEMATOCRIT 51.4 % (39.0-53.0); HEMOGLOBIN 17.7 g/dL (13.0-17.5); LYMPH # 1.6 x10^3/uL (1.0-4.8); LYMPH % 19 % (24-48); MEAN CORPUSCULAR HEMOGLOBIN 33 pg (25-35); MEAN CORPUSCULAR HGB CONC 35 g/dL (31-37); MEAN CORPUSCULAR VOLUME 95 fL (79-100); MONO # 0.9 x10^3/uL (0.0-1.1); MONO % 10 % (0-9); NEUT # 5.7 x10^3uL (1.8-7.7); NEUT % 68 % (31-73); PLATELET COUNT 147 x10^3/uL (140-400); RED BLOOD COUNT 5.43 x10^6/uL (4.30-5.70); RED CELL DISTRIBUTION WIDTH 13.3 % (11.5-14.5); WHITE BLOOD COUNT 8.4 x10^3/uL (4.0-11.0)
--- NOTE | 2018-03-21 16:14 | EKG ---
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
[2018-03-21 16:19] LABS: PROTHROMBIN TIME PATIENT 12.7 SEC (11.7-14.0)
[2018-03-21 16:40] LABS: ALBUMIN 3.8 g/dL (3.4-5.0); ALBUMIN/GLOBULIN RATIO 1.1 (1.0-1.7); CALCIUM 8.7 mg/dL (8.5-10.1); GFR 74.5; POTASSIUM 3.7 mmol/L (3.5-5.1); TOTAL BILIRUBIN 0.6 mg/dL (0.2-1.0); TOTAL PROTEIN 7.2 g/dL (6.4-8.2)
[2018-03-22 04:18] LABS: HEMOGLOBIN A1C 6.6 % (4.8-5.6)
== END | disposition home or self-care (01) ==
LOC: SURGPAT 13:36
PROVIDERS: ATTEND Neurological Surgery
DX: Z01.818 Encounter for other preprocedural examination (principal); M43.16 Spondylolisthesis, lumbar region; M48.061 Spinal stenosis, lumbar region without neurogenic claudication
CPT/HCPCS: 36415; 80053; 83036; 85025; 85610; 85730; 87641; 93005

== ENCOUNTER → 2018-06-03 | Outpatient (CLI) | payer MEDICARE ==
[2018-03-29 11:00] VITALS: BP 102/66
[~2018-06-03] MED LIST changes: +HYDR-3164 PO; -HYDR-971 PO; -OXYC-327 PO; +OXYC1TAB19 PO
--- NOTE | 2018-06-03 21:51 | KCIC ---
EXAM: Lumbar spine, 2 views. HISTORY: Fusion. COMPARISON: 03/28/2018 FINDINGS: 2 views of the lumbar spine are obtained. There is instrumented posterior spinal fusion with disc space fusion device placement at L4-L5. There is levoscoliosis centered at L3. There is severe degenerative endplate remodeling with disc space narrowing and osteophytosis at on the right aspect of L3-L4. There is bony remodeling and slight lateral translation of L3 on L4. There is sacralization of the left L5 transverse process resulting in articulation with the underlying sacrum, a normal variant. There is degenerative endplate remodeling and anterior spurring at L2-L3. There is a suspected rudimentary disc at L5-S1. IMPRESSION: 1. Instrumented fusion at L4-L5. 2. Lumbar scoliosis and severe degenerative change along the right aspects of L3-L4. This corresponds with the level of maximum scoliotic curvature. There is additional degenerative change at L2-L3. 3. Partially transitional lumbosacral segment. Electronically signed by: Valery Holman MD (06/03/2018 9:47 PM) [id number]
== END | disposition home or self-care (01) ==
LOC: KCIC 12:17
PROVIDERS: ATTEND Neurological Surgery
DX: Z47.89 Encounter for other orthopedic aftercare (principal); M47.816 Spondylosis without myelopathy or radiculopathy, lumbar region; M41.86 Other forms of scoliosis, lumbar region; Z98.1 Arthrodesis status
CPT/HCPCS: 72100

== ENCOUNTER → 2018-09-14 | Outpatient (CLI) | payer MEDICARE ==
[2018-03-29 11:00] VITALS: BP 102/66
--- NOTE | 2018-09-14 14:50 | KCIC ---
Three-view study lumbar spine Clinical indications: Lumbar fusion. Follow-up study. COMPARISON: May 26, 2018. FINDINGS: Again seen is a grade 2 anterolisthesis of L4-5 which is unchanged. Bilateral transpedicular screws are seen at L4 and L5 connected by 2 vertical metallic stabilizer bars. Interbody disc space expanding fusion device is seen within the L4-5 disc space. There is severe degenerative disc space narrowing and prominent degenerative endplate spurring at L3-4 which is stable. There is prominent degenerative spurring at L2-3. There is mild degenerative disc space narrowing and mild degenerative endplate spurring at L1-2. No discitis or lytic process is seen. No acute compression fracture is evident. Mild levoscoliosis is seen. The transverse processes are intact. IMPRESSION: Stable L4-5 fusion and stable grade 2 anterolisthesis of L4-5. No acute compression fracture is evident. Electronically signed by: Cuauhtemoc Gresham MD (09/14/2018 2:47 PM) [facility]
== END | disposition home or self-care (01) ==
LOC: KCIC 12:44
PROVIDERS: ATTEND Neurological Surgery
DX: M43.26 Fusion of spine, lumbar region (principal); M48.061 Spinal stenosis, lumbar region without neurogenic claudication; M46.06 Spinal enthesopathy, lumbar region
CPT/HCPCS: 72100

== ENCOUNTER → 2018-11-24 | Outpatient (CLI) | payer MEDICARE ==
[2018-03-29 11:00] VITALS: BP 102/66
[~2018-11-24] MED LIST changes: +METH750T2 PO; +OXYC1TAB15 PO
[2018-11-24 09:35] LABS: BASO % 1 % (0-3); EOS # 0.2 x10^3/uL (0.0-0.7); EOS % 3 % (0-3); HEMATOCRIT 47.8 % (39.0-53.0); HEMOGLOBIN 16.7 g/dL (13.0-17.5); LYMPH # 1.1 x10^3/uL (1.0-4.8); LYMPH % 23 % (24-48); MEAN CORPUSCULAR HEMOGLOBIN 33 pg (25-35); MEAN CORPUSCULAR HGB CONC 35 g/dL (31-37); MEAN CORPUSCULAR VOLUME 93 fL (79-100); MONO # 0.4 x10^3/uL (0.0-1.1); MONO % 9 % (0-9); NEUT # 3.2 x10^3uL (1.8-7.7); NEUT % 64 % (31-73); PLATELET COUNT 117 x10^3/uL (140-400); RED BLOOD COUNT 5.12 x10^6/uL (4.30-5.70); RED CELL DISTRIBUTION WIDTH 13.5 % (11.5-14.5)
[2018-11-24 09:56] LABS: ALBUMIN 3.5 g/dL (3.4-5.0); ALBUMIN/GLOBULIN RATIO 1.3 (1.0-1.7); CALCIUM 8.4 mg/dL (8.5-10.1); CREATININE 0.8 mg/dL (0.7-1.3); GFR 96.4; POTASSIUM 3.5 mmol/L (3.5-5.1); TOTAL BILIRUBIN 1.2 mg/dL (0.2-1.0); TOTAL PROTEIN 6.2 g/dL (6.4-8.2)
[2018-11-24 10:00] LABS: PROTHROMBIN TIME PATIENT 12.8 SEC (11.7-14.0)
[2018-11-25 09:16] LABS: HEMOGLOBIN A1C 5.3 % (4.8-5.6)
--- NOTE | 2018-11-25 10:41 | NUR ---
FAXED PRE - OP CBC REPORT TO 'S OFFICE WITH LOW PLATELETS FOR REVIEW AT 0945 11/25/2018 AND RECEIVED TRANSMITTAL CONFIRMATION AND ALSO CALLED OFFICE AND TALKED TO VENECIA, OFFICE STAFF AT 0950 AND SAID SHE WILL GIVE COPY TO DEVI VILA APRN TO REVIEW.
== END | disposition home or self-care (01) ==
LOC: SURGPAT 08:47
PROVIDERS: ATTEND Neurological Surgery
DX: Z01.818 Encounter for other preprocedural examination (principal); M48.062 Spinal stenosis, lumbar region with neurogenic claudication; M96.0 Pseudarthrosis after fusion or arthrodesis
CPT/HCPCS: 36415; 80053; 83036; 85025; 85610; 85730; 87641

== ENCOUNTER 2018-12-01 05:59 | Inpatient (IN) | payer MEDICARE ==
--- NOTE | 2018-11-30 15:26 | PREOP HP ---
DATE OF SERVICE: 12/01/2018 DATE OF SURGERY: 12/01/2018. HISTORY OF PRESENT ILLNESS: The patient is a pleasant 68-year-old who is having difficulty with pain. About 6 months post-decompression instrumentation, fusion at L4-L5. He has noted continual slow increase in strength in his lower extremities. He exercises at home. He is using his recumbent bike daily. He feels gradual improvement throughout. PAST MEDICAL HISTORY: Cancer, radiation, thyroid disease. PAST SURGICAL HISTORY: Rotator cuff in , right knee scope in , right knee ACL , tonsillectomy in childhood, colon resection in , laparoscopic cholecystectomy in , thyroid surgery in 2004, L4-L5 and fusion in 2018. FAMILY HISTORY: Cancer, diabetes, heart problems and disease and hypertension. 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 . Exercises daily. Denies substance abuse or tobacco use. Drinks alcohol 1-2 times per year. Drinks soda and tea daily. ALLERGIES: SUTURES. CURRENT MEDICATIONS: Synthroid, simvastatin, omega 3, multivitamin. REVIEW OF SYSTEMS: A 12-point review of systems was obtained and is noncontributory except for that mentioned above. PHYSICAL EXAMINATION: NEUROSURGERY EXAMINATION: GENERAL APPEARANCE: Alert, pleasant, no acute distress. HEAD: Normocephalic, atraumatic. SKIN: Warm and dry. Well-healed lumbar incision. MUSCULOSKELETAL: Lumbar paraspinal muscle bulk is normal, restricted range of motion of the lumbar spine, [id number] tenderness of lower lumbar spine with palpation, normal range of motion of the lower extremities bilaterally. EXTREMITIES: No clubbing, cyanosis or edema. NEUROLOGIC: Alert, oriented x 3. Normal recent or remote memory, strength 5/5 in bilateral lower extremities except for 4+/5 plantar flexion bilaterally. Sensory was intact to light touch in lower extremities bilaterally. Reflexes are trace and symmetric in bilateral lower extremities. Negative straight leg raising bilaterally, normal gait. Difficulty with step-off. IMAGING: Reviewed. I reviewed a lumbar MRI scan. He is slowly translating forward at L4-L5, especially compared to films that were done at the time of his last surgery. Clearly, there is pseudoarthrosis at this level. He is developing angulation at L3-L4. ASSESSMENT: 1. 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 2. Spinal stenosis, lumbar region with neurogenic claudication. PLAN: At this point, he is going to need a reoperation for pseudoarthrosis and worked to aggressively reduce the anterolisthesis of L4-L5 and decompress L3-L4. He will require instrumentation from L3 through L5 with removal and replacement of hardware at L4-L5. I discussed this with him. We will move forward with imaging studies and prepare for surgery, which he would like to have done in November. LAUREN DOYLE MD DR: GINI/alejandrina JOB#: [id number] / [id number]
[~2018-12-01] VITALS: Ht 177.8 cm; Wt 83.9 kg
[2018-12-01] VITALS (9 sets, daily range): BP systolic 88–125; BP diastolic 63–78
[~2018-12-01 05:59] MED LIST changes: +BUPIVAC MPF-EPI 0.5%-1:200000 30 ML VIAL. ONE; +GELATIN SPONGE SIZE 12-7MM SPONGE. ONE; +KETOROLAC 60 MG/2 ML INJ FOR OR. ONE; -METH750T2 PO; -OXYC1TAB15 PO; +THROMBIN TOPICAL 20,000 UNIT SPRAY.SYRN KIT TP ONE
[2018-12-01] MEDS: LEVOTHYROXINE 137 MCG TABLET PO SCH (06:00)
[2018-12-01] MEDS ORDERED: BACITRACIN 50,000 UNIT in IV NORMAL SALINE 1000ML BAG 1,000 ML IRR ONE (06:00)
[2018-12-01] MEDS ORDERED: HYDROmorphone 2 MG/ML VIAL IV PRN (07:00)
[2018-12-01] MEDS ORDERED: IV RINGERS,LACTATED 1000ML 1,000 ML IV SCH (07:00)
[2018-12-01] MEDS ORDERED: INSULIN LISPRO 100 UNIT/ML 3ML VIAL for OP,RR ONLY. SQ PRN (07:00)
[2018-12-01] MEDS ORDERED: PROCHLORPERAZINE 10 MG/2 ML VIAL. IV PRN (07:00)
[2018-12-01] MEDS ORDERED: MORPHINE SULFATE 2 MG/ML VIAL. IV PRN (07:00)
[2018-12-01] MEDS ORDERED: ONDANSETRON PF 4 MG/2 ML VIAL. IV PRN ×2 (07:00→15:00)
[2018-12-01] MEDS ORDERED: fentaNYL PF VIAL 100 MCG/2 ML VIAL IV PRN ×2 (07:00→15:00)
[2018-12-01] MEDS ORDERED: LIDOCAINE 1% PF 2 ML VIAL. ID PRN (07:00)
[2018-12-01] MEDS ORDERED: DEXAMETHASONE SOD PHOS 20 MG/5 ML VIAL. ONE (07:56)
[2018-12-01] MEDS ORDERED: ONDANSETRON PF 4 MG/2 ML VIAL. ONE (07:56)
[2018-12-01] MEDS ORDERED: LIDOCAINE 2% PF 5 ML VIAL. ONE (07:56)
[2018-12-01] MEDS ORDERED: PROPOFOL 20 ML IV ONE (07:56)
[2018-12-01] MEDS ORDERED: PHENYLEPHRINE 10 MG/ML VIAL. ONE (07:56)
[2018-12-01] MEDS ORDERED: PROPOFOL 50 ML IV ONE ×4 (07:56→14:42)
[2018-12-01] MEDS ORDERED: ROCURONIUM 50 MG/5 ML VIAL. ONE (07:56)
[2018-12-01] MEDS ORDERED: MINERAL OIL/PETROLATUM,WHITE OPHTH OINT 3.5GM TUBE. ONE (07:57)
[2018-12-01] MEDS ORDERED: MIDAZOLAM HCL/PF 2 MG/2 ML VIAL. ONE (07:57)
[2018-12-01] MEDS ORDERED: REMIFENTANIL 2 MG VIAL. IV ONE ×2 (07:57→12:02)
[2018-12-01] MEDS ORDERED: GLYCOPYRROLATE 1 MG/5 ML VIAL. ONE (07:58)
[2018-12-01] MEDS ORDERED: 0.9 % SODIUM CHLORIDE 20 ML VIAL. IJ ONE ×2 (08:04)
[2018-12-01] MEDS ORDERED: SCOPOLAMINE 1.5MG PATCH. TD ONE (09:00)
--- NOTE | 2018-12-01 09:22 | RAD ---
CT of the lumbar spine without contrast, 12/01/2018: HISTORY: Lumbar stenosis, brain lab protocol Noncontrast scans were obtained with multiplanar reconstructions produced. The data was transferred to the operating room to aid in the patient's stereotactically guided surgery. The following findings are delineated: 1. There is a mild left convexity lumbar scoliosis with a mild rotatory component at L3-4. 2. The central spinal canal and neural foramina are well maintained at L1-2. There is mild posterior disc bulging laterally on the left. 3. At L2-3 there is mild posterior disc bulging. The central spinal canal and neural foramina are well maintained. 4. There are bilateral pedicle screws attached to posterior fixation rods at L4 and L5. Associated artifacts degrade image quality at and inferior to the L3-4 level. There is severe disc space narrowing at L3-4 with a vacuum disc phenomena and moderate posterior spurring. There is posterior ligamentous thickening due to facet joint arthropathy at this level. The thecal sac is not clearly defined, however, there does appear to be moderate central spinal stenosis and foraminal encroachment, more so on the right. 5. In addition to the posterior fixation devices, there is a partially radiopaque disc spacer at L4-5. There are laminectomy defects posteriorly. There appears to have been partial resection of the right facet joint at this level. There is grade 1-2 anterolisthesis at L4-5. The underlying thecal sac is poorly defined but is probably stenotic. There is moderate bilateral foraminal encroachment at this level. 6. At L5-S1 the central spinal canal and neural foramina are well maintained. There is partial sacralization or surgical fusion of the left transverse process with the sacrum. PQRS Compliance Statement: One or more of the following individualized dose reduction techniques were utilized for this examination: 1. Automated exposure control 2. Adjustment of the mA and/or kV according to patient size 3. Use of iterative reconstruction technique
[2018-12-01] MEDS ORDERED: DESFLURANE > 120 MINUTES IH ONE (10:23)
[2018-12-01] MEDS ORDERED: GELATIN SPONGE SIZE 12-7MM SPONGE. ONE ×2 (11:20)
[2018-12-01] MEDS ORDERED: ceFAZolin SODIUM 1 GM VIAL ONE (12:05)
[2018-12-01] MEDS ORDERED: MAGNESIUM HYDROXIDE 2,400 MG/30 ML ORAL.SUSP. PO PRN (15:00)
[2018-12-01] MEDS ORDERED: MAG HYDROX/ALUMINUM HYD/SIMETH 30 ML ORAL.SUSP PO PRN (15:00)
[2018-12-01] MEDS ORDERED: NALOXONE 0.4 MG/ML VIAL. IV PRN (15:00)
[2018-12-01] MEDS ORDERED: 0.9 % SODIUM CHLORIDE 10 ML DISP.SYRIN. IV PRN (15:00)
[2018-12-01] MEDS ORDERED: METHOCARBAMOL 750 MG TABLET PO PRN (15:00)
[2018-12-01] MEDS ORDERED: oxyCODONE/APAP 5/325 1 TAB TABLET PO PRN ×2 (15:00)
[2018-12-01] MEDS ORDERED: ACETAMINOPHEN 325 MG TABLET. PO PRN (15:00)
[2018-12-01] MEDS ORDERED: CALCIUM CARBONATE 500 MG TAB.CHEW PO PRN (15:00)
[2018-12-01] MEDS ORDERED: diphenhydrAMINE HCL 25 MG CAPSULE PO PRN (15:00)
[2018-12-01] MEDS ORDERED: fentaNYL PF VIAL 100 MCG/2 ML VIAL ONE (16:09)
[2018-12-01] MEDS: fentaNYL PF VIAL 100 MCG/2 ML VIAL IV PRN ×2 (16:11→16:40)
--- NOTE | 2018-12-01 17:00 | NUR ---
Patient arrived to the unit around 1645 in a bed. He is on room air with vital signs stable. Pain rating ranges but is usually around a 4. IV infusing in right hand without any complications. PATRICIA hose on both legs and Steph are working properly. Scopolamine patch behind left ear with no complaints of nausea at this time. Blood sugar checked before arrival to the floor which was 144. All three dressing are dry/intact with no concerns noted at this time. He has not voided at this time and he had a Robin during the case so this will be monitored. No urge to void yet. Will continue to monitor.
[2018-12-01] MEDS: POTASSIUM CL 20MEQ D5-0.45NACL 1,000 ML IV SCH (17:42)
[2018-12-01] MEDS ORDERED: SIMVASTATIN 20 MG TABLET PO SCH (21:00)
[2018-12-01] MEDS ORDERED: FINASTERIDE 5 MG TABLET. PO SCH (21:00)
[2018-12-01] MEDS: DOCUSATE SODIUM 100 MG CAPSULE. PO SCH (21:36)
[2018-12-01] MEDS: ceFAZolin SODIUM IV Push 1 GM VIAL. IVP SCH (21:37)
[2018-12-01] MEDS ORDERED: ceFAZolin SODIUM 1 GM in IV DEXTROSE 5% 50 ML IV SCH (22:00)
[2018-12-02 02:36] VITALS: BP 104/65
[2018-12-02] MEDS: POTASSIUM CL 20MEQ D5-0.45NACL 1,000 ML IV SCH (04:17)
[2018-12-02] MEDS: ceFAZolin SODIUM IV Push 1 GM VIAL. IVP SCH (06:02)
[2018-12-02] MEDS: LEVOTHYROXINE 137 MCG TABLET PO SCH (06:02)
[2018-12-02 06:16] VITALS: BP 95/66
--- NOTE | 2018-12-02 06:47 | NUR ---
Patient has denied need for pain medications all night. Pain medication offered frequently throughout the night. Patient has voided throughout night.
[2018-12-02] MEDS: DOCUSATE SODIUM 100 MG CAPSULE. PO SCH (08:05)
--- NOTE | 2018-12-02 08:24 | NUR ---
Refused Flomax takes at bedtime. Up to bedside chair, call light within reach, ice pack & pillows to back for comfort
[2018-12-02] MEDS ORDERED: TAMSULOSIN 0.4 MG CAP.ER.24H. PO SCH (09:00)
[2018-12-02] MEDS ORDERED: DOCU-109 PO (11:58)
[2018-12-02] MEDS ORDERED: METH750T2 PO (11:58)
[2018-12-02] MEDS ORDERED: OXYC1TAB15 PO (11:58)
--- NOTE | 2018-12-02 11:59 | DISCH ---
DISCHARGE INSTRUCTIONS Condition on Discharge Condition on Discharge: Stable Activity After Discharge Activity Instructions for Disc: Activity as tolerated, Avoid exertion, Prog ressive ambulation Bathing Instructions: Shower-keep dressing dry, No Tub Bath until see Lifting Instructions after Dis: No heavy lifting, No pulling or pushing, Do not lift >10 pounds Exercise Instruction after Dis: Progress as tolerated Driving Instructions after Dis: No driving for 2 weeks Weight Bearing Status after Di: Full weight bearing Diet after Discharge Diet after Discharge: Regular Additional Diet Restrictions: resume home diet Diet Texture: Regular Liquid Texture: Thin Liquid Wound Incision Care Wound/Incision Care: Ice to area for comfort, Change dressing, Reinforce dressing PRN Other wound/incision instructi: may remove dressing when dry then may shower, no soaking Wound Care Equipment: Sutures/wili Contacting the [facility] after DC Call your doctor for: Concerns you may have Follow-Up Follow up with: Dr. Doyle's nurse in 2 weeks [phone] Treatment/Equipment after DC Adaptive Equipment Issued: Brace/splint LAUREN DOYLE MD Dec 02, 2018 11:59
[2018-12-02 12:30] VITALS: BP 98/64
--- NOTE | 2018-12-02 13:30 | NUR ---
Discharged to home per w/c accompanied by brother, instruction given to pt/brother with follow up to Dr. Paris in 2 weeks, brace to be worn at all times except sleeping and shower, to start walking program next week, offered home health/outpatient therapy refused at this time, would speak with MD during follow up if needed, see instruction sheet for details.
--- NOTE | 2018-12-05 17:58 | OP ---
DATE OF SURGERY: 12/01/2018 PREOPERATIVE DIAGNOSES: 1. Pseudoarthrosis L4-L5, with increasing spondylolisthesis, L4-L5. 2. Lateral listhesis L3-4, with increasing stenosis at L3-4. OPERATION PERFORMED: Removal of hardware, L4-L5. Removal of pseudoarthrotic TLF cage, L4-L5. Placement of hardware, L3, L4, L5. Posterolateral fusion with autograft bone, L3, L4, L5. Bone marrow aspirate, left iliac crest. Anterior lumbar diskectomy L4-L5 from a right lateral oblique approach. Anterior lumbar interbody fusion from the right lateral oblique approach with interbody fusion cage packed with allograft and autograft bone. Left hemilaminotomy with decompression of dura and nerve root L3-L4. Reduction of spondylolisthesis, L4-L5, realignment L3-L4. The operation was done with EMG monitoring, SSEP monitoring, stimulated EMG monitoring, fluoroscopy, microscopic dissection, BrainLAB guidance. OPERATIVE INDICATIONS: The patient is a very pleasant 68-year-old man who a year ago underwent a decompression and instrumented lumbar fusion at L4-L5 and initially did well. He is developing, however, increasing spondylolisthesis at L4-L5 and definite evidence of nonunion at this level, and I recommended reoperation with removal of the hardware and re-fusion at L4-L5. Additionally, he is developing increasing lateral listhesis at L3-L4, and I felt that I would be able to better correct the problem at L3-L4 and reduce the spondylolisthesis with the construct, which included L3-L4. Additionally, there was increasing stenosis at L3-L4 which I feel should also be addressed. He understood the surgery and the risks. He understood the technique of the operation, and he wished to go ahead. DESCRIPTION OF PROCEDURE: Following general endotracheal anesthesia, the patient was placed prone on the Surjit table. Lumbar region prepped and draped in standard fashion. PATRICIA hose and AV impulse boots were applied for DVT prophylaxis. A microscope was draped. Fluoroscopy was draped in the field. Monitoring was established. Ancef 2 grams was given less than 1 hour prior to initiation of the surgery. I placed iliac pins in the right iliac crest and the BrainLAB system was initialized. I then extended in his previous incision, which was a midline incision superiorly to include L3-L4. I dissected down to subcutaneous tissue and reflected the paraspinal muscles and exposed hardware at L4-L5 and removed the hardware at L4-L5 and found that there was a rounding out of the pedicles at L5. Once this was accomplished, then I stripped away scar and exposed the facets as well as the transverse processes of L3, L4, L5 bilaterally and placed Aly retractors. Using the MagMeLAB system and the high speed air drill, I drilled entry points into the pedicles of L3 bilaterally. I did use anatomic landmarks as well as BrainLAB system to place this. I then passed a black ball followed by the ball tip probe, followed by tap placement, and I used stimulated EMG monitoring during these maneuvers, I used the [employer] system. At this point, then I exposed the TLIF cage, which had been placed at L4-L5. This was done by using the BrainLAB system and identifying of the pedicles of L4 and L5 on the right side. I drilled away scar, and I assured myself that the L4 root was clear and then entered into the disk space at L4-L5 from the right side. Working down then, I was able to visualize the TLIF cage. I attached towards the nuclear powerplant mechanic to the TLIF cage and then gently removed the cage without significant difficulty. I then made an incision in the right flank and passed the BrainLAB system with a sheath down to dock at the lateral and inferolateral aspect of the pedicle of superior lateral aspect of the pedicle of L5 and working superiorly entered into the disk space with a K-wire. I then used a dilator followed by a working channel and entered into the disk space. I aggressively performed a diskectomy from right to left and used to shave disk space ayala as well as scrapers to expose across contralaterally. I did pack allograft bone into the disk space, followed by placing a trial, which I tapped across the midline and then I measured and placed a 9-mm interbody fusion cage, which again was packed with allograft and autograft bone. The autograft bone I obtained from the spinous process of L4 and L5, and then, this was combined with allograft bone and tapped into the disk space. I assured fluoroscopically that the position was excellent. During this time, I placed the pedicle screws of L4 and L5. I did use reducing reduction screws of L4. However, on the left side prior to placement of the lucinda, I brought in the microscope and using the high speed air drill and worked at L3-L4 and performed a generous laminotomy, drilling away the lamina of the left lamina, performing a hemilaminotomy in this location, trimmed away very thickened ligamentum flavum and decompressed the canal from this approach. Following this, then the rods were placed, the nuts were applied. I gently began to work with the construct and allow the L4-L5 spondylolisthesis to be gently reduced. I worked and helped to straighten and distract the collapsed right side at L3-L4, and as I worked, I was able to achieve an improvement in the overall alignment and virtual complete reduction of a large grade 1, small grade 2 spondylolisthesis at L4-L5. The cage was in excellent position. I assured myself that there was plenty of bone mixed with bone marrow in each lateral gutter, and as I worked, I felt that I was able to achieve an excellent realignment and decompression. The construct was torqued in a sequential fashion, then re-torqued in a sequential fashion. I irrigated copiously with antibiotic solution. At this point, then I confirmed my position with images, and I closed the wound then with absorbable suture in layers, and the skin was closed with a 4-0 subcuticular stitch. The operation went very well. The patient was awakened uneventfully in recovery room in excellent condition. I was quite pleased with the surgery. LAUREN DOYLE MD DR: GINI/alejandrina JOB#: [id number] / [id number]
--- NOTE | 2018-12-05 18:06 | PATHOLOGY ---
[facility] Accession Number: [id number] . 01 Material submitted: . vertebral column - LUMBAR DECOMPRESSION AND DISC . 01 Clinical history: . Pseudoarthrosis, stenosis with neurogenic claudication . 02 Diagnosis: Segments of fibrocartilaginous tissue and bone, lumbar decompression and disc: - Degenerative changes of fibrocartilaginous tissue. (JPM:[facility] 12/05/2018) [facility]/12/05/2018 . 02 Comment: There is no evidence of an acute inflammatory process or malignancy. (JP:[facility] 12/05/2018) . 02 Electronically signed: . Figueroa Aly MD, Pathologist NPI- [id number] . 01 Gross description: . The specimen is received in formalin, labeled "Chantel Enriquez, lumbar decompression and disc". Received is a moderate amount of pale rodriges fibrous soft tissue admixed with small fragments of bone measuring 4.5 x 3.8 x 0.9 cm in aggregate dimensions. The specimen is submitted representatively in cassette A1, following light decalcification. ([facility]; 12/02/2018) QAC/QAC . 02 Pathologist provided ICD-10: M51.36 . 02 CPT . 798535, 751095 Specimen Comment: A courtesy copy of this report has been sent to Specimen Comment: [phone], . Specimen Comment: Report sent to / DR LICONA Performed at: 01 [facility] [address], [place] [id number] MD Kendrick Lu MD Phone: [phone] Performed at: 02 [facility] [address], [place] [id number] MD Figueroa Aly MD Phone: [phone]
== END 2018-12-02 13:57 | disposition home or self-care (01) | DRG 454 ==
LOC: OPSVCIP 05:59 → 4 SOUTHEST 16:45
PROVIDERS: ADMIT Neurological Surgery; ATTEND Neurological Surgery
PROC: 0SG00AJ Fusion of Lumbar Vertebral Joint with Interbody Fusion Device, Posterior Approach, Anterior Column, Open Approach (ICD-10-PCS; 2018-12-01)
PROC: 0SB20ZZ Excision of Lumbar Vertebral Disc, Open Approach (ICD-10-PCS; 2018-12-01)
PROC: 01NB0ZZ Release Lumbar Nerve, Open Approach (ICD-10-PCS; 2018-12-01)
PROC: 0SP00AZ Removal of Interbody Fusion Device from Lumbar Vertebral Joint, Open Approach (ICD-10-PCS; 2018-12-01)
PROC: 4A11X4G Monitoring of Peripheral Nervous Electrical Activity, Intraoperative, External Approach (ICD-10-PCS; 2018-12-01)
PROC: 00NY0ZZ Release Lumbar Spinal Cord, Open Approach (ICD-10-PCS; 2018-12-01)
PROC: 07DR0ZZ Extraction of Iliac Bone Marrow, Open Approach (ICD-10-PCS; 2018-12-01)
PROC: 0SG1071 Fusion of 2 or more Lumbar Vertebral Joints with Autologous Tissue Substitute, Posterior Approach, Posterior Column, Open Approach (ICD-10-PCS; principal; 2018-12-01 08:30)
DX: M48.062 Spinal stenosis, lumbar region with neurogenic claudication (principal); M96.0 Pseudarthrosis after fusion or arthrodesis; M43.16 Spondylolisthesis, lumbar region; Y83.8 Other surgical procedures as the cause of abnormal reaction of the patient, or of later complication, without mention of misadventure at the time of the procedure; Y92.89 Other specified places as the place of occurrence of the external cause; Z83.3 Family history of diabetes mellitus; Z82.49 Family history of ischemic heart disease and other diseases of the circulatory system; Z90.49 Acquired absence of other specified parts of digestive tract
CPT/HCPCS: 36415; 72131; 76000; 82962; 86850; 86900; 86901; 88304; 88311; A7015; C1713; C9359; J0690; J0696; J1100; J1815; J1885; J2001; J2250; J2405; J2704; J3010; J3490; J7030; J7120; 97110; 97116; 97530; C1776

== ENCOUNTER → 2019-02-10 | Outpatient (CLI) | payer MEDICARE ==
[~2019-02-10] MED LIST changes: -BUPIVAC MPF-EPI 0.5%-1:200000 30 ML VIAL. ONE; -GELATIN SPONGE SIZE 12-7MM SPONGE. ONE; -KETOROLAC 60 MG/2 ML INJ FOR OR. ONE; +METH750T2 PO; +OXYC1TAB15 PO; -THROMBIN TOPICAL 20,000 UNIT SPRAY.SYRN KIT TP ONE
--- NOTE | 2019-02-10 19:30 | KCIC ---
EXAM: AP, lateral and lumbosacral spot views of the lumbar spine DATE: 02/10/2019 12:00 AM INDICATION: Spinal fusion, low back pain COMPARISON: No Prior FINDINGS: For the purposes of this report there are 5 nonrib-bearing lumbar-type vertebral bodies. Posterior lateral fusion L3-L5 with L4-5 interbody fusion changes are seen. 7 mm anterolisthesis of L4 on L5. 3 mm retrolisthesis of L3 and L4. Straightening of the normal lumbar lordosis. Mild L5-S1 disc height loss. Mild T12-L1 disc height loss. Vascular calcifications are seen. Cholecystectomy clips are noted. IMPRESSION: 1. Multilevel spondylosis as above 2. Negative acute fracture. 3. Listhesis at L3-4 and L4-5 as above. Electronically signed by: Mitesh Meeks MD (02/10/2019 5:19 PM) [facility]
== END | disposition home or self-care (01) ==
LOC: KCIC 13:12
PROVIDERS: ATTEND Neurological Surgery
DX: M43.26 Fusion of spine, lumbar region (principal); M40.46 Postural lordosis, lumbar region; M47.896 Other spondylosis, lumbar region; Z90.49 Acquired absence of other specified parts of digestive tract
CPT/HCPCS: 72100

== ENCOUNTER → 2019-05-11 | Outpatient (CLI) | payer MEDICARE ==
[~2019-05-11] MED LIST changes: +SIMV40TA18 PO; -SIMV40TA3 PO
--- NOTE | 2019-05-11 15:49 | KCIC ---
EXAM: Lumbar spine, 2 views. HISTORY: Fusion. COMPARISON: 02/10/2019. FINDINGS: 2 views of the lumbar spine are obtained. There is lumbar levoscoliosis centered at L3. There is instrumented posterior spinal fusion at L3-L5. There is a disc space fusion device at L4-L5. There is grade 1 anterolisthesis of L4 on L5. There is degenerative endplate remodeling with disc space narrowing and osteophytosis primarily at L3-L4. The left L5 transverse process is sacralized and there is suggestion of ankylosis between this transverse process and the underlying sacrum. IMPRESSION: 1. Multilevel degenerative change, primarily at L3-L4. 2. Instrumented fusion at L3-L5, described above. 3. Scoliosis and grade 1 anterolisthesis of L4 and L5. Electronically signed by: Valery Holman MD (05/11/2019 3:46 PM) [facility]
== END | disposition home or self-care (01) ==
LOC: KCIC 14:47
PROVIDERS: ATTEND Neurological Surgery
DX: M43.16 Spondylolisthesis, lumbar region (principal); M47.816 Spondylosis without myelopathy or radiculopathy, lumbar region; M41.86 Other forms of scoliosis, lumbar region; Z98.890 Other specified postprocedural states
CPT/HCPCS: 72100

== ENCOUNTER → 2019-06-01 | Outpatient (CLI) | payer MEDICARE ==
--- NOTE | 2019-06-01 11:59 | KCIC ---
EXAM: Lumbar spine, 3 views. HISTORY: Pain. COMPARISON: 05/11/2019 FINDINGS: 3 views of the lumbar spine are obtained. There is instrumented posterior spinal fusion at L3-L5 and disc space fusion device placement at L4-L5. There is suggestion of slight lucency surrounding the left L5 transpedicular screw. There is grade 1 anterolisthesis of L4 on L5, measuring 11 mm. There is minimal retrolisthesis of L3 on L4. There is degenerative endplate remodeling with disc space narrowing and osteophytosis primarily at L3-S1. There is sacralization of the left aspect of L5 and articulation with the underlying sacrum. There is a rudimentary disc at L5-S1. There is levoscoliosis centered at L3. There are surgical clips within the right abdomen. IMPRESSION: 1. Instrumented fusion at L3-L5. There is suggestion of slight lucency surrounding the L5 screw. There is stable listhesis at the fused levels. 2. Multilevel degenerative change involving the lumbar spine. 3. Transitional lumbosacral segment, a normal variant. Electronically signed by: Valery Holman MD (06/01/2019 11:57 AM) [facility]
== END | disposition home or self-care (01) ==
LOC: KCIC 11:27
PROVIDERS: ATTEND Neurological Surgery
DX: M47.817 Spondylosis without myelopathy or radiculopathy, lumbosacral region (principal); M48.07 Spinal stenosis, lumbosacral region; M43.16 Spondylolisthesis, lumbar region; M25.78 Osteophyte, vertebrae
CPT/HCPCS: 72100

== ENCOUNTER → 2019-08-08 | Outpatient (CLI) | payer MEDICARE ==
--- NOTE | 2019-08-08 17:21 | KCIC ---
2 view lumbar spine series Clinical indications: Status post lumbar fusion. Severe low back pain for 3 weeks. No recent injury. COMPARISON: June 01, 2019. FINDINGS: Again seen is posterior fusion of the lumbar spine from L3 through L5 including bilateral transpedicular screws at each level connected by 2 vertical metallic stabilizer bars. Position of the surgical hardware is unchanged. Again seen is a grade 2 anterolisthesis of L4-5 which is stable. Interbody disc space fusion device is seen within the L4-5 disc space. Disc height at this level is unchanged. No compression fracture or lytic process or discitis is seen. Degenerative endplate spurring is seen at L2-3 and L3-4 with is unchanged. Mild levoscoliosis is seen which is unchanged. The transverse processes remain intact. IMPRESSION: Stable L3-L5 fusion. Stable alignment. No new abnormality. Electronically signed by: Cuauhtemoc Gresham MD (08/08/2019 5:18 PM) [facility]
== END | disposition home or self-care (01) ==
LOC: KCIC 11:36
PROVIDERS: ATTEND Neurological Surgery
DX: M43.26 Fusion of spine, lumbar region (principal); M41.86 Other forms of scoliosis, lumbar region; M77.8 Other enthesopathies, not elsewhere classified; M46.06 Spinal enthesopathy, lumbar region
CPT/HCPCS: 72100

== ENCOUNTER → 2019-08-14 | Outpatient (CLI) | payer MEDICARE ==
--- NOTE | 2019-08-14 09:19 | KCIC ---
EXAM: Lumbar spine MRI without contrast. HISTORY: Spondylolisthesis. Laminectomy and fusion. Fall. TECHNIQUE: Multiplanar, multisequence magnetic resonance imaging of the lumbar spine was performed without contrast. COMPARISON: Radiographs dated 08/08/2019, CT dated 12/01/2018 and MRI dated 02/21/2018. FINDINGS: There is instrumented posterior spinal fusion at L3-L5. There are partial laminectomy changes at the fused levels. The instrumentation consists of paired transpedicular screws bridged by vertical rods and a disc space fusion device at L4-L5. This is better characterized on radiographs dated 08/08/2019. There is lumbar levoscoliosis centered at L3. There is grade 1 anterolisthesis of L4 and L5, measuring 9 mm. There is minimal anterolisthesis of T12 on L1, measuring 1 mm. There is minimal retrolisthesis of L1 on L2 and L2 on L3. There is degenerative endplate remodeling with disc space narrowing and osteophytosis primarily along the right greater than left aspects of L3-L4, and to a lesser extent, the left greater than right aspects of L4-L5. There is a suspected rudimentary disc at L5-S1 associated with a partially sacralized L5 segment. The conus terminates at L1-L2. There is clumping of nerve root and an empty sac at L5. This can be seen as a sequela of arachnoiditis. There are fluid collections within the left partial colectomy space at L3-L4, measuring 2.7 cm in bilaterally at L4-L5, measuring 3.2 cm and 3.0 cm. At T12-L1, there is a minimal disc bulge and endplate remodeling. There is minimal anterolisthesis. There is minimal facet arthropathy. There is minimal bilateral foraminal stenosis. At L1-L2, there is a left paracentral to foraminal disc protrusion with slight superior extrusion and annular tear superimposed on a left lateral predominant disc bulge and endplate osteophytosis. There is mild left greater than right facet arthropathy. There is mild right and [id number] left foraminal stenosis. There is mild effacement of the left lateral recess and abutment of the traversing left nerve roots. At L2-L3, there is a diffuse disc bulge and endplate remodeling. There is mild bilateral facet arthropathy. There is mild retrolisthesis. There is mild bilateral foraminal stenosis. At L3-L4, there is a diffuse disc bulge and right greater than left endplate osteophytosis. There is instrumented posterior spinal fusion. There is mild left greater than right foraminal stenosis. There is mild central canal stenosis despite partial laminectomy changes. At L4-L5, there is a broad-based right foraminal to lateral disc protrusion superimposed on a left greater than right disc bulge and endplate osteophytosis. There is grade 1 anterolisthesis. There is instrumented fusion. There is moderate bilateral foraminal stenosis. There is mild central canal stenosis despite partial laminectomy changes. At L5-S1, there is a rudimentary disc at this level. There is sacralization of the left L5 transverse process. There is no stenosis. IMPRESSION: 1. Instrumented posterior spinal fusion at L3-L5. There is new instrumentation at the L3-L4 level compared to the most recent comparison exam dated 12/01/2018. There is fluid within suspected partial laminectomy spaces on the right at L3-L4 and bilaterally at L4-L5, likely due to postoperative seromas. 2. Clumping of the nerve roots within the thecal sac and empty sac at L4-L5, a finding which can be seen with adhesive arachnoiditis. 3. Multilevel degenerative change throughout the lumbar spine and lower thoracic spine, described in detail above. This has increased at L1-L2, L3-L4 and L4-L5 compared to the prior MRI. This is associated with stenosis as described in detail above. The neural foramina are difficult to assess at the fused levels due to metallic artifact. 4. Lumbar scoliosis and multilevel listhesis. Electronically signed by: Valery Holman MD (08/14/2019 9:16 AM) [place] [id number]
== END ==
LOC: KCIC MRI 08:02
PROVIDERS: ATTEND Neurological Surgery
DX: M41.86 Other forms of scoliosis, lumbar region (principal); M48.05 Spinal stenosis, thoracolumbar region; M47.815 Spondylosis without myelopathy or radiculopathy, thoracolumbar region; Z98.1 Arthrodesis status
CPT/HCPCS: 72148

== ENCOUNTER → 2019-08-25 | Outpatient (CLI) | payer MEDICARE ==
--- NOTE | 2019-08-25 09:27 | KCIC ---
CT lumbar spine without contrast. HISTORY: Recent fall, previous fusion surgeries Axial CT images were obtained to the lumbar spine. Comparison is made with a recent MRI study. There is no acute lumbar fracture. Patient had previous fusion from L3 to L5. Acute fracture is not identified. Pedicle screws at L3 and L4 are in good position. There is lucency about the pedicle screws at L5 which can be seen with motion although the screws are in good position without change. There is evidence of bone fusion at L5-S1 on the left side. T12-L1 levels unremarkable without a focal disc protrusion or spinal stenosis. There is a left-sided disc protrusion at the level the foramina and lateral to the foramina on the left side at L1-2 unchanged from the MRI study. There is no central spinal stenosis or right foraminal stenosis. There is mild bulging of the disc at L to 3 again more on the left than on the right without central spinal stenosis or foraminal stenosis. The artifacts off the pedicle screws limit evaluation. There is no central spinal stenosis. There is spondylolisthesis at L4-5 without change. There is calcification of the distal thecal sac behind the sacrum. There is mild foraminal stenosis at L4-5 and at L3-4. IMPRESSION: 1. No acute fracture. 2. Solid bony fusion at L5-S1. 3. Spondylolisthesis L4-5 without change. 4. Lucency about the pedicle screws at L5 suggesting motion at the L4-5 level. 5. Mild foraminal stenosis at L3-4 and L4-5. 6. Focal disc protrusion on the left at L1-L2 and at L2-3. PQRS Compliance Statement: One or more of the following individualized dose reduction techniques were utilized for this examination: 1. Automated exposure control 2. Adjustment of the mA and/or kV according to patient size 3. Use of iterative reconstruction technique Electronically signed by: Slade Anne MD (08/25/2019 9:24 AM) [id number]
== END | disposition home or self-care (01) ==
LOC: KCIC CT 08:36
PROVIDERS: ATTEND Neurological Surgery
DX: M43.16 Spondylolisthesis, lumbar region (principal); M48.061 Spinal stenosis, lumbar region without neurogenic claudication; M51.26 Other intervertebral disc displacement, lumbar region; Z98.1 Arthrodesis status
CPT/HCPCS: 72131

== ENCOUNTER → 2019-11-24 | Outpatient (CLI) | payer MEDICARE ==
[~2019-11-24] MED LIST changes: -LEVO137T2 PO; +LEVO137T44 PO
--- NOTE | 2019-11-24 12:35 | KCIC ---
L-spine 3 views INDICATION: Low back pain. Status post fusion. COMPARISON: CT lumbar spine 08/25/2019, L-spine x-ray series 08/08/2019 and 06/01/2019. TECHNIQUE: Standing AP, standing lateral and standing coned-down lateral views of the lumbar spine were obtained. FINDINGS: Grade 1 anterolisthesis of L4 on L5 is again evident with 10 mm of anterolisthesis. The rest of the lumbar spine is otherwise straightened with mild leftward convexity scoliotic curvature, apex at L3 with a Huang angle of 8.3 degrees as measured from the superior endplate of L2 to the inferior endplate of L5 on the AP standing view. Bones are moderately demineralized but no fracture or aggressive appearing osseous lesions are seen. There is posterior fusion hardware at L4-S1 lucinda and pedicle screw construct, pedicle screws through L4, L5 and S1. Interbody graft at L4-L5 is also present. Minimal lucency around the L5 screws is noted. No change in hardware position or configuration. No evidence of hardware failure. The discs are narrowed at L3-L4 and at L4-L5. There is likely results in at least mild bony foraminal stenosis at L4-L5. Extraspinal tissues show evidence of previous cholecystectomy and surgery in the right abdomen with anastomotic sutures and possible ventral hernia mesh repair. Aortic calcifications also noted. IMPRESSION: No change in alignment with mild levoscoliosis and grade 1 anterolisthesis of L4 on L5 status post posterior lucinda and pedicle screw construct fusion and L4-L5 interbody graft as described. No acute or aggressive osseous lesions. Electronically signed by: Kat Casey MD (11/24/2019 12:33 PM) [id number]
== END ==
LOC: KCIC 11:14
PROVIDERS: ATTEND Neurological Surgery
DX: M54.5 Low back pain (principal); Z90.49 Acquired absence of other specified parts of digestive tract
CPT/HCPCS: 72100

== ENCOUNTER → 2020-03-05 | Outpatient (CLI) | payer MEDICARE ==
--- NOTE | 2020-03-05 14:13 | KCIC ---
Noncontrast CT scan of lumbar spine compared to similar examination dated August 242021 evaluate for motion related to screws at L4-5, prior back surgery in November 2018, history of spondylolisthesis. TECHNIQUE: Contiguous axial CT images are obtained through the lumbar spine. Sagittal and coronal reformations are evaluated. No IV contrast was administered. FINDINGS: There is pedicle screw and lucinda fixation of L3-L5. Spinal alignment is grossly stable, with straightening of the normal lordosis, and grade 1 anterolisthesis of L4 and L5. Intervertebral disc spacer is seen at L4-5. There is no lucency seen around any of the pedicle screws at L3 or L4, however there is redemonstration of lucency around the pedicle screws bilaterally at L5, grossly unchanged in appearance and extent from the prior examination. Overall, there is no significant change in the appearance or position of the surgical hardware. There has been subtle progression of degenerative disc disease at L3-4 with more advanced destruction of the right intervertebral disc space at this level. At T12-L1, there is no significant bony canal stenosis, and the neural foramina are widely patent. At L1-2, no significant bony canal stenosis, and the neural foramina are widely patent. At L2-3, there is no significant bony canal stenosis and neuroforaminal are widely patent. At L3-4, there is no significant bony canal stenosis, however there may be mild bony narrowing of the neural foramina bilaterally. At L4-5, there is no significant bony canal stenosis and there is perhaps moderate bilateral neural foraminal stenosis, left greater than right. At L5-S1, no significant bony central canal stenosis, no significant neuroforaminal narrowing. IMPRESSION: 1. No acute osseous or alignment abnormality of lumbar spine. 2. Stable appearing postsurgical changes, with mild lucency around the L5 pedicle screws unchanged. No change to the overall conformation or appearance of the surgical hardware. 3. Progressive degenerative disc disease at L3-4 with increased collapse of the right lateral disc space resulting in [id number] at this level. Para PQRS Compliance Statement: One or more of the following individualized dose reduction techniques were utilized for this examination: 1. Automated exposure control 2. Adjustment of the mA and/or kV according to patient size 3. Use of iterative reconstruction technique Electronically signed by: Nura Wesley MD (03/05/2020 2:10 PM) [place] [id number]
== END | disposition home or self-care (01) ==
LOC: KCIC CT 10:27
PROVIDERS: ATTEND Neurological Surgery
DX: M51.16 Intervertebral disc disorders with radiculopathy, lumbar region (principal); M43.16 Spondylolisthesis, lumbar region; M40.46 Postural lordosis, lumbar region
CPT/HCPCS: 72131

== ENCOUNTER → 2021-03-07 | Outpatient (CLI) | payer MEDICARE ==
[~2021-03-07] MED LIST changes: +METH-562 PO; -METH750T2 PO
--- NOTE | 2021-03-07 12:31 | KCIC ---
EXAM: XR LUMBAR SPINE 2-3V 03/07/2021 8:48 AM CLINICAL INDICATION: Lumbar fusion one year ago COMPARISON: CT lumbar spine 03/05/2020 TECHNIQUE: 2 views of the lumbar spine FINDINGS: There is partial sacralization of L5 on the left. There are bilateral pedicle screws and co nnecting rods at L3, L4, and L5. There is an interbody graft at L4-L5. There is unchanged small amoun t of lucency around the L5 screws. Unchanged 2 mm and listhesis of L4 on L5. Unchanged moderate disc space narrowing and endplate sclerosis at L3-L4 Mild levoscoliosis of lumbar spine is unchanged. Mild disc space narrowing at L1-L2 and L2-L3 with anterior osteophytes is unchanged. IMPRESSION: 1. Unchanged posterior fusion at L3-L5 and interbody fusion at L4-L5. Mild lucency surrounding the L5 screws is unchanged. 2. Unchanged mild degenerative disc disease at L1-L2 and L2-L3. Electronically signed by: Jessica Coreas MD (03/07/2021 12:29 PM) [id number]
== END ==
LOC: KCIC 08:45
PROVIDERS: ATTEND Neurological Surgery
DX: M51.36 Other intervertebral disc degeneration, lumbar region (principal); M48.061 Spinal stenosis, lumbar region without neurogenic claudication; M43.27 Fusion of spine, lumbosacral region; M43.16 Spondylolisthesis, lumbar region; M41.86 Other forms of scoliosis, lumbar region; Z98.1 Arthrodesis status
CPT/HCPCS: 72100